=== PATIENT | male | born 1930 | race Caucasian/White ===

== ENCOUNTER 2017-03-08 06:25 | Day surgery (SDC) | payer OTHER | END 2017-03-08 09:50 | disposition home or self-care (01) | LOC: AMB-ENDOS 06:25 | DX: D13.1 Benign neoplasm of stomach (principal) ==

== ENCOUNTER 2017-03-11 12:05 | Inpatient (IN) | payer OTHER ==
[~2017-03-11] VITALS: Ht 175.3 cm; Wt 77.1 kg
[2017-03-11] MEDS ORDERED: TAMS0.4C (13:02)
[2017-03-11] MEDS ORDERED: VERTICALM25 MG (13:03)
[2017-03-11] MEDS ORDERED: ISOSORBIDE DINI30 MG (13:03)
[2017-03-11] MEDS ORDERED: ELIQUIS2.5 MG (13:04)
[2017-03-11] MEDS ORDERED: CARAFATE1 GM/10 ML (13:05)
== END 2017-03-14 12:06 | disposition home or self-care (01) | DRG 378 ==
LOC: ER 12:05 → SEC-K 22:28 → MEDJ 03-12 13:37 → MEDI 03-12 18:16 → SEC-K 03-12 18:41 → MEDI 03-14 12:06
PROC: 0W3P8ZZ Control Bleeding in Gastrointestinal Tract, Via Natural or Artificial Opening Endoscopic (ICD-10-PCS; principal; 2017-03-12)
PROC: 30233N1 Transfusion of Nonautologous Red Blood Cells into Peripheral Vein, Percutaneous Approach (ICD-10-PCS; 2017-03-13)
DX: K92.1 Melena (principal); D62 Acute posthemorrhagic anemia; K92.0 Hematemesis; I10 Essential (primary) hypertension; I25.10 Atherosclerotic heart disease of native coronary artery without angina pectoris; I48.2 Chronic atrial fibrillation; Z79.01 Long term (current) use of anticoagulants